=== PATIENT | female | born 1945 | race Native Hawaiian/Other Pacific Islander ===

== ENCOUNTER 2018-09-02 13:38 | Outpatient (CLI) | payer OTHER ==
[~2018-09-02 13:38] MED LIST: AMANTADINE100 M1 PO; BOOST PO; CHLO50TA22 PO; CHOL100034 PO; CLON0.5T36 PO; DIVA500T2 PO; DOCU100C10 PO; HYDR25SU3 RE; IBUPROFEN200 M1 PO; IMODIUM A-D2 MG PO; KAOPECTATE262 MG/15 PO; LEVO0.0723 PO; LEXAPRO20 MG PO; MIRALAX 17GM PAK PO; NEURONTIN800 MG PO; OLAN10INJ IM; POTA10CA3 PO; PROTONIX20 MG PO; QUET100T2 PO; QUET300T PO; RISP0.5T2 PO; RISP1TAB PO; SYMMETREL 100MG CAP PO; TRAM50TA PO; TRAZ50TA36 PO; ZIPR20IN IM; [UNRECOGNIZED DRUG - OTHER] PO
== END 2018-09-02 19:19 | disposition home or self-care (01) ==
LOC: RAD 13:38 → EDBD 13:38 → RAD 19:19
DX: M54.2 Cervicalgia (principal)